=== PATIENT | male | born 1965 | race Caucasian/White ===

== ENCOUNTER 2020-04-04 23:00 | Emergency (ER) | payer OTHER ==
[~2020-04-04] VITALS: Ht 180.3 cm; Wt 104.3 kg
[~2020-04-04 23:00] MED LIST: CIPRSO OU
[2020-04-05] MEDS ORDERED: LIDO700A20 TOP (03:14)
== END 2020-04-05 03:25 | disposition home or self-care (01) ==
LOC: ER 23:00
DX: M54.5 Low back pain (principal); F17.210 Nicotine dependence, cigarettes, uncomplicated; W01.0XXA Fall on same level from slipping, tripping and stumbling without subsequent striking against object, initial encounter
CPT/HCPCS: 72070; 72100; 96372; 99283; A9270; J1885